=== PATIENT | male | born 1965 | race Caucasian/White ===

== ENCOUNTER 2018-03-09 14:44 | Outpatient (RCR) | payer MEDICAID | END 2018-03-15 | LOC: M OUTALCOH 14:44 | DX: F10.10 Alcohol abuse, uncomplicated (principal); F17.200 Nicotine dependence, unspecified, uncomplicated ==

== ENCOUNTER 2018-03-16 09:56 | Outpatient (RCR) | payer MEDICAID | END 2018-04-15 | LOC: M OUTALCOH 09:56 | DX: F10.10 Alcohol abuse, uncomplicated (principal); F17.200 Nicotine dependence, unspecified, uncomplicated ==

== ENCOUNTER 2018-04-22 11:43 | Outpatient (RCR) | payer MEDICAID | END 2018-05-15 | LOC: M OUTALCOH 11:43 | DX: F10.10 Alcohol abuse, uncomplicated (principal); F17.200 Nicotine dependence, unspecified, uncomplicated ==

== ENCOUNTER 2018-05-20 11:52 | Outpatient (RCR) | payer MEDICAID | END 2018-06-15 | LOC: M OUTALCOH 05-26 10:30 | DX: F10.10 Alcohol abuse, uncomplicated (principal); F17.200 Nicotine dependence, unspecified, uncomplicated ==

== ENCOUNTER 2018-07-21 11:20 | Outpatient (RCR) | payer MEDICAID | END 2018-08-15 | LOC: M OUTALCOH 11:20 | DX: F10.10 Alcohol abuse, uncomplicated (principal); F17.200 Nicotine dependence, unspecified, uncomplicated ==

== ENCOUNTER 2018-09-07 14:00 | Outpatient (RCR) | payer MEDICAID | END 2018-09-15 | LOC: M OUTALCOH 14:00 | DX: F10.10 Alcohol abuse, uncomplicated (principal); F17.200 Nicotine dependence, unspecified, uncomplicated ==

== ENCOUNTER → 2019-09-09 | Outpatient (CLI) | payer OTHER ==
[~2019-09-09] MED LIST: ABIL10TA9 PO; ATOR80TA59 PO; AUGM875T28 PO; BACT800T5 PO; DIOV160T6 PO; EFFEXOR PO; HYDR1CRE TOP; INHALER; KLON1TAB PO; NIZO2SHA TOP; TYLE325T5 PO
--- NOTE | 2019-09-09 17:29 | REP ---
REASON FOR EXAM: Peripheral vascular disease. PRIORS: None. On the right the ankle brachial index is 0.9 Right [employer] 144.6 cm/s triphasic Profunda 109.7 cm/s monophasic SFA proximal 94.2 cm/s triphasic SFA mid 83.6 cm/s triphasic SFA distal 113.9 cm/s triphasic Popliteal artery 49.6 cm/s triphasic Anterior tibial artery proximally 27.8 cm/s triphasic Tibioperoneal trunk 67.8 cm/s triphasic Posterior tibial artery proximal 66.5 cm/s triphasic Posterior tibial artery distal 113.1 cm/s monophasic Anterior tibial artery distally 59.3 cm/s monophasic On the left the ankle brachial index is 0.5 Left [employer] 25.1 cm/s monophasic Profunda 610.8 cm/s monophasic All portion of the superficial femoral artery on the left were occluded. Popliteal artery 22.9 cm/s monophasic Anterior tibial artery proximally 14.1 cm/s monophasic Tibioperoneal trunk 27.4 cm/s monophasic Posterior tibial artery proximal 25.1 cm/s monophasic Posterior tibial artery distal 35.5 cm/s monophasic Anterior tibial artery distally 22.4 cm/s monophasic Moderate to severe plaque was seen throughout the right arterial system. Low velocity flow was seen in the common femoral artery with increased velocity at the profunda on the left with occlusions as described above. The popliteal artery is reconstituted by revascularization and collateral circulation. No collaterals, however, were able to be visualized or interrogated by peripheral ultrasound. Electronically Signed by Ace Emanuel DO 09/12/2019 02:28 P
== END ==
LOC: M RAD 12:10
PROVIDERS: ATTEND Surgery
DX: I70.201 Unspecified atherosclerosis of native arteries of extremities, right leg (principal)

== ENCOUNTER → 2019-10-18 | Outpatient (CLI) | payer OTHER ==
--- NOTE | 2019-10-20 09:24 | REP ---
PET/CT: HISTORY: Lung nodule. Unspecified liver disease. COMPARISONS: [facility] prior CT study of the chest dated September 16, 2019 . There is also a comparison chest CT study from July 19, 2014. TECHNIQUE: 45 minutes following the intravenous injection of a 9.33 mCi dose of F-18 FDG, three-dimensional PET scintigraphy is acquired from the skull base to the proximal thighs. Triplanar noncontrast CT scanning is acquired through the same anatomic range for attenuation correction, and image registration with scan parameters optimized to minimize radiation exposure to the patient. PET scintigraphy and CT datasets were fused and displayed on a workstation with multiplanar and projection display capability. PET/CT FINDINGS: There are small air-fluid levels in the maxillary sinuses bilaterally noted incidentally. Head and neck soft tissues are otherwise unremarkable. There is a 25 x 22 oval- shaped relatively high attenuation pulmonary nodule in the right lower lobe posterior lung sulcus. This nodule was visible on July 19, 2014 and is only slightly larger, 22 x 17 mm dimensions on this can 5 years ago. Mean Hounsfield unit density within the nodule is 85.7 Hounsfield units, question minimal internal calcification. There is mildly increased uptake within the nodule with maximum standard uptake value of 2.78. There are calcified granulomatous lymph node residuals in the right hilus, which show similar metabolic activity. These findings are consistent with a benign granulomatous disease. No other abnormal pulmonary parenchymal hypermetabolic uptake is seen. There are three benign subcentimeter subpleural nodules in the right mid lung on CT study of the chest which show note observable uptake. In the abdomen and pelvis, normal FDG distribution is seen. No abnormal hypermetabolic uptake is seen. IMPRESSION: Findings consistent with benign granulomatous disease in the chest; with a 2.5 cm right lower lobe pulmonary nodule seen only slightly larger than on the CT study 5 years prior. Electronically Signed by Kraig Dee MD 10/20/2019 05:43 P
== END ==
LOC: M PLARAD 12:44
PROVIDERS: ATTEND Family Medicine
DX: R91.1 Solitary pulmonary nodule (principal); K76.9 Liver disease, unspecified
CPT/HCPCS: 78815; A9552

== ENCOUNTER → 2023-06-25 | Outpatient (CLI) | payer OTHER ==
[~2023-06-25] MED LIST changes: +ALBU2.5V10 INH; +ATEN50TA2 PO; +ATOR1TAB21 PO; +BREO1INH INH; +BUSP15TA47 PO; +CLON0.5T17 PO; +CLOP75TA2 PO; +EFFE150C2 PO; +LISI20TA33 PO; +MIRT-62 PO; +SYMB16INH INH
== END ==
LOC: M RAD 11:11
PROVIDERS: ATTEND Surgery Vascular Surgery
DX: T82.898A Other specified complication of vascular prosthetic devices, implants and grafts, initial encounter (principal); Y83.1 Surgical operation with implant of artificial internal device as the cause of abnormal reaction of the patient, or of later complication, without mention of misadventure at the time of the procedure